=== PATIENT | male | born 1980 | race Hispanic/Latino ===

== ENCOUNTER 2018-07-08 10:40 | Emergency (ER) | payer SELFPAY ==
[2018-07-08 11:13] LABS: #Eosinphils 0.1 thou/uL (0.0-0.7); #Lymphocytes 1.4 thou/uL (1.20-3.40); #Monocytes 0.5 thou/uL (0.11-0.59); #Neutrophils 4.4 thou/uL (1.40-6.50); %Basophils 0.5 % (0.0-1.0); %Eosinophils 1.7 % (0.0-10.0); %Lymphocytes 21.1 % (21.0-51.0); %Monocytes 7.6 % (0.0-10.0); %Neutrophils 69.1 % (42.0-75.0); Hemoglobin 15.3 g/dL (14.0-18.0); Mean Corpuscular Hemoglobin 25.9 pg (27.0-31.0); Mean Corpuscular Volume 78.4 fL (78.0-98.0); Mean Platelet Volume 8.3 fL (7.4-10.4); Platelet Count 211 thou/uL (130-400); RBC Distribution Width 15.3 % (11.5-14.5); Red Blood Cell (RBC) Count 5.93 mill/uL (4.70-6.10); White Blood Cell (WBC) Count 6.4 thou/uL (4.8-10.8)
[2018-07-08 11:38] LABS: ALT (SGPT) 94 U/L (8-55); AST (SGOT) 73 U/L (5-34); Albumin 4.6 g/dL (3.5-5.0); Alkaline Phosphatase 127 U/L (40-150); Anion Gap 19 mmol/L (10-20); BUN (Urea Nitrogen) 6 mg/dL (8.9-20.6); Bilirubin, Total 1.9 mg/dL (0.2-1.2); Calc. Creatinine Clearance 0 mL/min (70-130); Calcium 9.6 mg/dL (7.8-10.44); Carbon Dioxide 20 mmol/L (22-29); Chloride 102 mmol/L (98-107); Estimated GFR-MDRD Greater than 90; Glucose 105 mg/dL (70-105); Potassium 3.3 mmol/L (3.5-5.1); Protein, Total 7.6 g/dL (6.0-8.3); Sodium 138 mmol/L (136-145)
[2018-07-08] MEDS ORDERED: Acetaminophen 500 MG TAB ONE (12:09)
--- NOTE | 2018-07-08 12:15 | CT ---
CT BRAIN WITHOUT CONTRAST: Date: 07/08/18 HISTORY: Dizziness, headache, weakness, facial numbness. FINDINGS: No evidence of acute infarct, hemorrhage, midline shift, or abnormal extra-axial fluid collections ar e seen. The ventricular size is normal and the basilar cisterns are patent. There is mucosal disease in the paranasal sinuses. An old fracture of the right lamina papyracea is present. The bony calvariu m is intact. The mastoid air cells are well aerated. IMPRESSION: No CT evidence of acute intracranial process. POS: [facility]
[2018-07-08 12:39] LABS: PTT 29.7 SEC (22.9-36.1); Prothrombin Time 13.2 SEC (12.0-14.7)
[2018-07-08] MEDS ORDERED: Diazepam 5 MG TAB ONE (13:11)
[2018-07-08 13:41] LABS: Bilirubin Negative (Negative); Blood, Urine Negative (Negative); Clarity CLEAR (Clear); Glucose, Urine (Dipstick) Negative (Negative); Leukocyte Small (Negative); Nitrite Negative (Negative); Protein, Urine (Dipstick) Trace mg/dL (Neg-Trace); Specific Gravity, Urine 1.019 (1.002-1.036)
[2018-07-08 13:43] LABS: Bacteria/HPF None Seen HPF (None Seen); Hyaline Casts/LPF 0-3 HYALINE CAST LPF (0-3 Hyaline); Squamous Epithelial 0-3 HPF (0-3)
== END 2018-07-08 14:31 | disposition home or self-care (01) ==
LOC: ERS 10:40
DX: S16.1XXA Strain of muscle, fascia and tendon at neck level, initial encounter (principal); F17.210 Nicotine dependence, cigarettes, uncomplicated; X58.XXXA Exposure to other specified factors, initial encounter; Z71.6 Tobacco abuse counseling
CPT/HCPCS: 36415; 70450; 80053; 81003; 81015; 82550; 83690; 84484; 85025; 85610; 85730; 87086; 93005; 96360; 99406

== ENCOUNTER 2021-05-21 11:40 | Inpatient (IN) | payer SELFPAY ==
[~2021-05-21 11:40] MED LIST: Iopamidol-370 76% 500 ML 1 ML ONE
[2021-05-21 12:06] LABS: Hemoglobin 15.9 g/dL (14.0-18.0); Mean Corpuscular HGB CONC 33.2 g/dL (32.0-36.0); Mean Corpuscular Hemoglobin 30.7 pg (27.0-31.0); Mean Corpuscular Volume 92.4 fL (78.0-98.0); RBC Distribution Width 12.3 % (11.5-14.5); Red Blood Cell (RBC) Count 5.18 mill/uL (4.70-6.10)
[2021-05-21 12:16] LABS: INR-International Normal Ratio 1.1; Prothrombin Time 14.6 sec (12.0-14.7)
[2021-05-21 12:17] LABS: PTT 37.1 sec (22.9-36.1)
[2021-05-21 12:22] LABS: Mean Platelet Volume 7.5 fL (7.4-10.4); Platelet Count 259 thou/uL (130-400); White Blood Cell (WBC) Count 22.4 thou/uL (4.8-10.8)
[2021-05-21 12:23] LABS: Band 8 % (5-11); Lymphocytes 10 % (21-51); MDiff Complete? YES; Monocytes 7 % (0-10); Neutrophil 75 % (42-75); RBC Morphology Normal; Vacuoles SLIGHT
[2021-05-21 12:25] LABS: ALT (SGPT) 15 U/L (8-55); AST (SGOT) 13 U/L (5-34); Albumin 3.9 g/dL (3.5-5.0); Alkaline Phosphatase 102 U/L (40-110); Anion Gap 15 mmol/L (10-20); BUN (Urea Nitrogen) 9 mg/dL (8.9-20.6); Bilirubin, Total 1.2 mg/dL (0.2-1.2); Calc. Creatinine Clearance 0 mL/min (70-130); Calcium 9.3 mg/dL (7.8-10.44); Carbon Dioxide 22 mmol/L (22-29); Chloride 103 mmol/L (98-107); Globulin 3.7 g/dL (2.4-3.5); Glucose 136 mg/dL (70-105); Potassium 3.9 mmol/L (3.5-5.1); Protein, Total 7.6 g/dL (6.0-8.3); Sodium 136 mmol/L (136-145)
[2021-05-21] MEDS ORDERED: Piperacillin/Tazobactam 3.375 GM VIAL ONE (12:43)
[2021-05-21] MEDS ORDERED: Morphine 4 MG/ML VIAL ONE ×2 (12:43→14:59)
[2021-05-21] MEDS ORDERED: Ondansetron PF 4 MG/2 ML Vial ONE ×2 (12:43→23:51)
[2021-05-21 13:29] LABS: Bilirubin Negative (Negative); Blood, Urine Negative (Negative); Clarity Clear (Clear); Glucose, Urine (Dipstick) Normal (Negative); Ketone, Urine Negative (Negative); Leukocyte Negative Leu/uL (Negative); Nitrite Negative (Negative); Protein, Urine (Dipstick) 20 mg/dL (Neg-Trace)
[2021-05-21 13:31] LABS: Specific Gravity, Urine 1.045 (1.002-1.036)
[2021-05-21] MEDS ORDERED: Acetaminophen 500 MG TAB ONE (15:05)
[2021-05-21] MEDS ORDERED: Ondansetron ODT 4 MG TAB PO PRN (16:44)
[2021-05-21] MEDS ORDERED: Acetaminophen 325 MG TAB PO PRN (16:44)
[2021-05-21] MEDS ORDERED: Ondansetron PF 4 MG/2 ML Vial IVP PRN (16:44)
[2021-05-21] MEDS ORDERED: Calcium Carbonate 500 MG ChewTAB PO PRN (16:44)
[2021-05-21] MEDS ORDERED: Ketorolac Tromethamine 30 MG/ML VIAL ONE ×2 (16:56→23:51)
[2021-05-21 17:34] LABS: SARS-CoV-2 NAA Rapid Test Not Detected (NotDetected)
[2021-05-21] MEDS ORDERED: Morphine 4 MG/ML VIAL SLOW IVP PRN (17:56)
[2021-05-21 17:58] LABS: Hemoglobin A1c 5.9 % (4.0-6.0)
[2021-05-21] MEDS ORDERED: Piperacillin/Tazobactam 3.375 GM in Sodium Chloride 0.9% 100 ML IVPB SCH (18:00)
[2021-05-21] MEDS: Piperacillin/Tazobactam 3.375 GM in Sodium Chloride 0.9% 100 ML IVPB SCH (19:57)
[2021-05-21] MEDS ORDERED: Morphine 4 MG/ML VIAL SLOW IVP SCH (21:30)
[2021-05-21] MEDS ORDERED: Promethazine HCl 25 MG/ML VIAL IVPB PRN (23:24)
[2021-05-21] MEDS ORDERED: Promethazine HCl 25 MG/ML VIAL IM PRN (23:24)
[2021-05-21] MEDS ORDERED: Ondansetron HCl/PF 4 MG/2 ML Vial IVP PRN (23:24)
[2021-05-21] MEDS ORDERED: Fentanyl 250 MCG/5 ML VIAL ONE (23:38)
[2021-05-21] MEDS ORDERED: Ketamine 50 MG/ML (10ML VIAL) ONE (23:39)
[2021-05-21] MEDS ORDERED: Midazolam HCl 2 mg/2 ml Vial ONE (23:44)
[2021-05-21] MEDS ORDERED: Succinylcholine 200 MG/10 ml SYRINGE FS ONE (23:51)
[2021-05-21] MEDS ORDERED: PROPOFOL 200 MG/20 ML VIAL ONE (23:51)
[2021-05-21] MEDS ORDERED: Lidocaine 1% PF 5 ML VIAL ONE (23:51)
[2021-05-21] MEDS ORDERED: Dexamethasone 20 MG/5 ML VIAL ONE (23:51)
[2021-05-21] MEDS ORDERED: PHENYLEPHRINE-NS 100 MCG/ML 10 ML SYRINGE ONE (23:51)
[2021-05-22] MEDS ORDERED: Meperidine HCl/PF 25 MG/ML VIAL SLOW IVP PRN (00:57)
[2021-05-22] MEDS ORDERED: HYDROmorphone 2 MG/ML VIAL SLOW IVP PRN (00:57)
[2021-05-22] MEDS ORDERED: Ondansetron HCl/PF 4 MG/2 ML Vial IVP PRN (00:57)
[2021-05-22] MEDS ORDERED: Promethazine HCl 25 MG/ML VIAL IVPB PRN (00:57)
[2021-05-22] MEDS ORDERED: Promethazine HCl 25 MG/ML VIAL IM PRN (00:57)
[2021-05-22] MEDS ORDERED: traMADol HCl 50 MG TAB PO PRN ×2 (01:01)
[2021-05-22] MEDS ORDERED: Morphine 4 MG/ML VIAL SLOW IVP PRN ×2 (01:03→10:23)
[2021-05-22] MEDS ORDERED: Ibuprofen 200 MG TAB PO PRN (01:07)
[2021-05-22] MEDS: Piperacillin/Tazobactam 3.375 GM in Sodium Chloride 0.9% 100 ML IVPB SCH (02:09)
[2021-05-22] MEDS ORDERED: Piperacillin/Tazobactam 3.375 GM in Sodium Chloride 0.9% 100 ML IVPB SCH (04:00)
[2021-05-22] MEDS: Lactated Ringer's 1,000 ML IV SCH (05:28)
[2021-05-22] MEDS ORDERED: Acetaminophen 325 MG TAB PO SCH (06:00)
[2021-05-22 06:49] LABS: Hemoglobin 14.5 g/dL (14.0-18.0); Mean Corpuscular HGB CONC 31.8 g/dL (32.0-36.0); Mean Corpuscular Hemoglobin 29.8 pg (27.0-31.0); Mean Corpuscular Volume 93.9 fL (78.0-98.0); Mean Platelet Volume 7.6 fL (7.4-10.4); Platelet Count 275 thou/uL (130-400); RBC Distribution Width 12.5 % (11.5-14.5); Red Blood Cell (RBC) Count 4.86 mill/uL (4.70-6.10); White Blood Cell (WBC) Count 22.4 thou/uL (4.8-10.8)
[2021-05-22 06:50] LABS: Band 28 % (5-11); Lymphocytes 8 % (21-51); MDiff Complete? YES; Monocytes 3 % (0-10); Neutrophil 60 % (42-75); Platelet Morphology Comment Appears Adequate; RBC Morphology Normal; Reactive Lymphocytes 1 % (0-10)
[2021-05-22 06:54] LABS: ALT (SGPT) 13 U/L (8-55); AST (SGOT) 15 U/L (5-34); Albumin 3.5 g/dL (3.5-5.0); Alkaline Phosphatase 87 U/L (40-110); Anion Gap 14 mmol/L (10-20); BUN (Urea Nitrogen) 13 mg/dL (8.9-20.6); Bilirubin, Total 0.9 mg/dL (0.2-1.2); Calc. Creatinine Clearance 124 mL/min (70-130); Calcium 8.6 mg/dL (7.8-10.44); Carbon Dioxide 23 mmol/L (22-29); Chloride 106 mmol/L (98-107); Globulin 3.4 g/dL (2.4-3.5); Glucose 130 mg/dL (70-105); Protein, Total 6.9 g/dL (6.0-8.3); Sodium 139 mmol/L (136-145)
[2021-05-22] MEDS ORDERED: Enoxaparin Sodium 40 MG/0.4 ML SYRINGE SC SCH (09:00)
[2021-05-22] MEDS ORDERED: Polyethylene Glycol 3350 17 GM Packet PO SCH (09:00)
[2021-05-22] MEDS ORDERED: Saccharomyces boulardii 250 MG CAP PO SCH (09:00)
[2021-05-22 12:35] VITALS: BP 115/69; TEMP 98.2
== END 2021-05-22 13:24 | disposition home or self-care (01) | DRG 872 ==
LOC: ERS 11:40 → T4-A 15:24
PROVIDERS: ADMIT Family Medicine; ATTEND Family Medicine
PROC: 0J990ZZ Drainage of Buttock Subcutaneous Tissue and Fascia, Open Approach (ICD-10-PCS; principal; 2021-05-22)
DX: A41.9 Sepsis, unspecified organism (principal); K61.2 Anorectal abscess; K92.1 Melena; Z20.822 Contact with and (suspected) exposure to COVID-19; F17.210 Nicotine dependence, cigarettes, uncomplicated; R73.9 Hyperglycemia, unspecified; Z71.6 Tobacco abuse counseling
CPT/HCPCS: 36415; 51701; 71045; 74177; 80053; 81003; 82274; 83036; 83605; 83690; 84145; 85025; 85610; 85730; 87040; 87070; 87086; 87205; 93005; 94760; 96365; 96375; 96376; J1100; J1885; J2250; J2270; J2405; J2543; J2704; J3010; J3490; Q9967; U0002

== ENCOUNTER 2021-07-05 14:31 | Inpatient (IN) | payer OTHER, SELFPAY ==
[2021-07-05] MEDS ORDERED: Clindamycin/D5W 900 mg/50 ml Premix Bag ONE (15:56)
[2021-07-05] MEDS ORDERED: Ondansetron PF 4 MG/2 ML Vial ONE (15:56)
[2021-07-05] MEDS ORDERED: Morphine 4 MG/ML VIAL ONE (15:56)
[2021-07-05 16:16] LABS: #Basophils 0.1 thou/uL (0.0-0.2); #Eosinphils 0.2 thou/uL (0.0-0.7); #Lymphocytes 2.3 thou/uL (1.20-3.40); #Monocytes 0.9 thou/uL (0.11-0.59); #Neutrophils 8.7 thou/uL (1.40-6.50); %Basophils 0.4 % (0.0-1.0); %Eosinophils 1.4 % (0.0-10.0); %Lymphocytes 18.9 % (21.0-51.0); %Monocytes 7.6 % (0.0-10.0); %Neutrophils 71.6 % (42.0-75.0); Hemoglobin 14.7 g/dL (14.0-18.0); Mean Corpuscular HGB CONC 34.8 g/dL (32.0-36.0); Mean Corpuscular Hemoglobin 30.7 pg (27.0-31.0); Mean Corpuscular Volume 88.1 fL (78.0-98.0); Mean Platelet Volume 8.3 fL (7.4-10.4); Platelet Count 178 thou/uL (130-400); RBC Distribution Width 12.5 % (11.5-14.5); Red Blood Cell (RBC) Count 4.77 mill/uL (4.70-6.10); White Blood Cell (WBC) Count 12.2 thou/uL (4.8-10.8)
[2021-07-05 16:54] LABS: ALT (SGPT) 14 U/L (8-55); AST (SGOT) 19 U/L (5-34); Alkaline Phosphatase 109 U/L (40-110); Anion Gap 11 mmol/L (10-20); BUN (Urea Nitrogen) 10 mg/dL (8.9-20.6); Bilirubin, Total 2.2 mg/dL (0.2-1.2); Calc. Creatinine Clearance 0 mL/min (70-130); Carbon Dioxide 24 mmol/L (22-29); Chloride 105 mmol/L (98-107); Globulin 3.3 g/dL (2.4-3.5); Glucose 70 mg/dL (70-105); Potassium 4.5 mmol/L (3.5-5.1); Protein, Total 7.3 g/dL (6.0-8.3); Sodium 135 mmol/L (136-145)
[2021-07-05] MEDS ORDERED: Promethazine HCl 25 MG/ML VIAL IM PRN (18:14)
[2021-07-05] MEDS ORDERED: hydrALAZINE 20 MG/ML VIAL SLOW IVP PRN (18:14)
[2021-07-05] MEDS ORDERED: Dextrose 50% Abboject 50 ML SYRINGE SLOW IVP PRN (18:14)
[2021-07-05] MEDS ORDERED: Fentanyl 100 MCG/2 ML VIAL SLOW IVP PRN (18:14)
[2021-07-05] MEDS ORDERED: Dextrose 5% in Water 1,000 ML IV PRN (18:14)
[2021-07-05] MEDS ORDERED: Ondansetron PF 4 MG/2 ML Vial IVP PRN (18:14)
[2021-07-05 18:52] VITALS: BMI 36.1
[2021-07-05] MEDS: HYDROcodone/Acetaminophen 7.5/325 mg Tablet PO PRN (21:08)
[2021-07-05] MEDS: Famotidine 20 MG TAB PO SCH (21:10)
[2021-07-05] MEDS: Piperacillin/Tazobactam 3.375 GM in Sodium Chloride 0.9% 100 ML IVPB SCH ×2 (21:11→21:24)
[2021-07-05] MEDS: D5 1/2 NS w/20 mEq KCL 1,000 ML IV SCH (21:12)
[2021-07-06] MEDS: Famotidine/PF 20 mg/2ml Vial SLOW IVP SCH ×3 (00:07→20:36)
[2021-07-06] MEDS: Piperacillin/Tazobactam 3.375 GM in Sodium Chloride 0.9% 100 ML IVPB SCH ×3 (01:38→17:28)
[2021-07-06 03:20] LABS: SARS-CoV-2 NAA Rapid Test Not Detected (NotDetected)
[2021-07-06] MEDS: D5 1/2 NS w/20 mEq KCL 1,000 ML IV SCH ×3 (07:15→20:36)
[2021-07-06] MEDS: Famotidine 20 MG TAB PO SCH ×2 (09:55→20:30)
[2021-07-06] MEDS ORDERED: Famotidine/PF 20 mg/2ml Vial ONE (11:25)
[2021-07-06] MEDS ORDERED: Fentanyl 100 MCG/2 ML VIAL ONE ×3 (11:25→13:05)
[2021-07-06] MEDS ORDERED: PROPOFOL 200 MG/20 ML VIAL ONE (11:45)
[2021-07-06] MEDS ORDERED: Lidocaine 1% PF 5 ML VIAL ONE (11:45)
[2021-07-06] MEDS ORDERED: Ondansetron PF 4 MG/2 ML Vial ONE (11:45)
[2021-07-06] MEDS: HYDROcodone/Acetaminophen 7.5/325 mg Tablet PO PRN (17:29)
[2021-07-07] MEDS: Piperacillin/Tazobactam 3.375 GM in Sodium Chloride 0.9% 100 ML IVPB SCH ×2 (00:24→08:14)
[2021-07-07] MEDS: HYDROcodone/Acetaminophen 7.5/325 mg Tablet PO PRN ×3 (00:24→13:52)
[2021-07-07] MEDS: Famotidine 20 MG TAB PO SCH (08:14)
[2021-07-07] MEDS: D5 1/2 NS w/20 mEq KCL 1,000 ML IV SCH (08:32)
[2021-07-07 12:05] VITALS: BP 124/69; TEMP 98.1
[2021-07-07] MEDS: Famotidine/PF 20 mg/2ml Vial SLOW IVP SCH (12:13)
== END 2021-07-07 14:40 | disposition home or self-care (01) | DRG 345 ==
LOC: ERS 14:31 → SURG A 17:22 → OBSVTOIN 18:14
PROVIDERS: ADMIT Surgery; ATTEND Surgery
PROC: 0D9P0ZZ Drainage of Rectum, Open Approach (ICD-10-PCS; principal; 2021-07-06)
DX: K61.1 Rectal abscess (principal); L03.317 Cellulitis of buttock; Z20.822 Contact with and (suspected) exposure to COVID-19; F17.290 Nicotine dependence, other tobacco product, uncomplicated; Z28.310 Unvaccinated for COVID-19
CPT/HCPCS: 36415; 74177; 80053; 83605; 85025; 87040; 96365; 96375; G0378; J2270; J2405; J2543; J2704; J3010; J3480; J3490; S0028; U0002

== ENCOUNTER 2023-04-27 11:45 | Emergency (ER) | payer SELFPAY ==
[2023-04-27] MEDS ORDERED: Proparacaine 0.5% Opth 15 ML BOT ONE (12:23)
[2023-04-27] MEDS ORDERED: Ibuprofen 800 MG TAB ONE (12:26)
[2023-04-27] MEDS ORDERED: Fluorescein Opthalmic Strip ONE (12:54)
== END 2023-04-27 13:16 | disposition home or self-care (01) ==
LOC: ERS 11:45
DX: L03.213 Periorbital cellulitis (principal); H10.502 Unspecified blepharoconjunctivitis, left eye; F17.210 Nicotine dependence, cigarettes, uncomplicated; Z55.6 Problems related to health literacy; Z75.3 Unavailability and inaccessibility of health-care facilities
CPT/HCPCS: 99283